=== PATIENT | female | born 1980 | race Caucasian/White ===

== ENCOUNTER 2024-08-11 19:34 | Emergency (ER) | payer MEDICAID ==
[~2024-08-11] VITALS: Ht 160 cm; Wt 69.4 kg
[2024-08-11] MEDS ORDERED: FAMOTIDINE 20 MG TABLET ONE (23:50)
[2024-08-11] MEDS ORDERED: predniSONE 10 MG TABLET ONE (23:51)
[2024-08-11] MEDS ORDERED: EPINEPHRINE-PF 1:1000 1 MG/ML AMPUL/VIAL ONE (23:51)
[2024-08-12] MEDS ORDERED: DIPH25CA83 PO (00:04)
[2024-08-12] MEDS ORDERED: FAMO40TA7 PO (00:04)
[2024-08-12] MEDS ORDERED: PRED50TA PO (00:04)
[2024-08-12] MEDS: EPINEPHRINE-PF 1:1000 1 MG/ML AMPUL/VIAL SQ ONE (00:05)
[2024-08-12] MEDS: predniSONE 10 MG TABLET PO ONE (00:05)
[2024-08-12] MEDS: FAMOTIDINE 20 MG TABLET PO ONE (00:05)
[2024-08-12 00:21] VITALS: BP 110/76; TEMP 98; O2SAT 99
== END 2024-08-12 00:21 | disposition home or self-care (01) ==
LOC: ER 19:41
DX: J30.81 Allergic rhinitis due to animal (cat) (dog) hair and dander (principal); Z79.52 Long term (current) use of systemic steroids; Y92.89 Other specified places as the place of occurrence of the external cause
CPT/HCPCS: 99283; 96372; J7512; J0171; A4606; A4663